=== PATIENT | male | born 1995 | race Two or more races ===

== ENCOUNTER 2018-10-21 22:30 | Emergency (ER) | payer OTHER ==
[~2018-10-21] VITALS: Ht 167.6 cm; Wt 67.9 kg
[2018-10-21 22:33] VITALS: BP 147/67
--- NOTE | 2018-10-21 22:57 | NUR ---
THIS IS A 23 Y/O MALE WITH NEW ONSET OF LOWER RIGHT LEG PAIN. PT REPORTS THAT HE HAS STARTED WORKING OUT AND IS HAVING MORE PAIN. PT REPORTS A BURING IN HIS LOWER BACK AND IS HAVING A SHARP PAIN SHOOTING DOWN HIS LEG.
[2018-10-21 23:09] LABS: BASOPHILS # (AUTO) 0.05 x10^3/uL (0-0.1); BASOPHILS % (AUTO) 1 % (0-1); EOSINOPHILS % (AUTO) 1 % (1-7); LYMPHOCYTES # (AUTO) 2.97 x10^3/uL (1-3.4); LYMPHOCYTES % (AUTO) 32 % (22-44); MD NO; MEAN CORPUSCULAR HEMOGLOBIN 31.6 pg (27.5-34.5); MEAN CORPUSCULAR HGB CONC 33.6 g/dL (33.2-36.2); MEAN CORPUSCULAR VOLUME 94.2 fL (81-97); MEAN PLATELET VOLUME 8.2 fL (7.4-10.4); MONOCYTES # (AUTO) 0.57 x10^3/uL (0.2-0.8); MONOCYTES % (AUTO) 6 % (2-9); NEUTROPHILS # (AUTO) 5.74 x10^3/uL (1.8-6.8); NEUTROPHILS % (AUTO) 61 % (42-75); PLATELET COUNT 230 x10^3/uL (130-400); RED BLOOD COUNT 5.18 x10^6/uL (4.38-5.82)
[2018-10-21 23:23] LABS: ALANINE AMINOTRANSFERASE 46 U/L (12-78); ALBUMIN 4.5 g/dL (3.4-5.0); ANION GAP 7 mmol/L (5-15); CHLORIDE 105 mmol/L (98-107); CREATININE 1.12 mg/dL (0.7-1.3)
[2018-10-21 23:25] LABS: ALKALINE PHOSPHATASE 64 U/L (45-117); BILIRUBIN,TOTAL 0.4 mg/dL (0.2-1.0)
--- NOTE | 2018-10-21 23:54 | NUR ---
KIESHA COLLECTED, BEDSIDE REPORT TO ERNESTO NORRIS
[2018-10-21 23:59] LABS: MICROSCOPIC NOT IND
--- NOTE | 2018-10-22 00:01 | NUR ---
REPORT FROM JR BARTLETT. PT SITTING UP IN [facility], [facility] NOTED. UA COLLECTED AND SENT BY JR BARTLETT. PT UPDATED TO POC (RESULTS/RECHECK) AND DEMONSTRATES UNDERSTANDING.
[2018-10-22 00:02] LABS: CULTURE INDICATED? NO
--- NOTE | 2018-10-22 00:24 | NUR ---
DC EDUCATION PROVIDED, PT DEMONSTRATES UNDERSTANDING. PT AMBULATED STEADILY TO DC WITH RN AND FAMILY
== END 2018-10-22 00:32 | disposition home or self-care (01) ==
LOC: ED 10-22 00:26
DX: M25.551 Pain in right hip (principal); Z00.01 Encounter for general adult medical examination with abnormal findings
CPT/HCPCS: 36415; 80053; 81003; 85025; 99284